=== PATIENT | male | born 1990 | race Caucasian/White ===

== ENCOUNTER 2024-12-01 12:53 | Outpatient (RCR) | payer OTHER, SELFPAY | END 2024-12-01 23:59 | disposition home or self-care (01) | LOC: OT 12:53 | PROVIDERS: Visit Provider Family Medicine | DX: M25.512 Pain in left shoulder (principal); S43.005A Unspecified dislocation of left shoulder joint, initial encounter | CPT/HCPCS: 97165 ==

== ENCOUNTER 2025-01-02 09:00 | Outpatient (RCR) | payer OTHER, SELFPAY | END 2025-01-02 23:59 | disposition home or self-care (01) | LOC: OT 09:00 | PROVIDERS: Visit Provider Family Medicine | DX: M25.512 Pain in left shoulder (principal); S43.005A Unspecified dislocation of left shoulder joint, initial encounter | CPT/HCPCS: 97014; 97110; 97140; 97168; G0283 ==

== ENCOUNTER 2025-01-26 13:54 | Outpatient (RCR) | payer OTHER, SELFPAY | END 2025-01-26 23:59 | disposition home or self-care (01) | LOC: OT 13:54 | PROVIDERS: Visit Provider Family Medicine | DX: S43.005A Unspecified dislocation of left shoulder joint, initial encounter (principal) | CPT/HCPCS: 97014; 97110; 97140; 97168; 97530; G0283 ==

== ENCOUNTER 2025-02-13 09:08 | Outpatient (RCR) | payer OTHER, SELFPAY | END 2025-02-13 23:59 | disposition home or self-care (01) | LOC: OT 09:08 | PROVIDERS: Visit Provider Family Medicine | DX: S43.005A Unspecified dislocation of left shoulder joint, initial encounter (principal) | CPT/HCPCS: 97014; 97110; 97140; 97168; G0283 ==